=== PATIENT | female | born 1955 | race Caucasian/White ===

== ENCOUNTER 2017-12-17 16:58 | Inpatient (IN) | payer OTHER ==
[2017-12-17] MEDS ORDERED: SODIUM CHLORIDE 0.9% 500 ML IV ONE ×2 (17:13→21:06)
[2017-12-17] MEDS ORDERED: PANTOPRAZOLE 40 MG/10 ML VIAL IVP STA (17:13)
--- NOTE | 2017-12-17 17:33 | ED ---
General Adult HPI - General Chief complaint: GI Bleed Stated complaint: Vomiting Blood Time Seen by Provider: 12/17/17 17:13 Source: patient, EMS, RN notes reviewed Mode of arrival: EMS Limitations: no limitations - History of Present Illness Initial comments: 62-year-old female presenting with hematemesis. Patient states she has had 2 episodes of bright red vomit just prior to arrival. Denies any abdominal pain. She has had some nausea over the past 24 hours. Patient states she's been eating nothing but chocolate over the past several weeks. She has complained of some dark stools which she attributed to the chocolate she was eating. She has also been taking Motrin for chronic back pain. No history of alcohol abuse. She is a current smoker. No history of stomach ulcers or GI bleed. No bright red blood per rectum. She also states the reason she has been eating soft foods because she has had difficulty swallowing. - Related Data Home Medications Medication Instructions Recorded Confirmed Ibuprofen [Advil] 400 - 600 mg PO Q8HR PRN 12/17/17 12/17/17 Allergies Allergy/AdvReac Type Severity Reaction Status Date / Time Penicillins Allergy Swelling Verified 12/17/17 17:01 Review of Systems ROS Statement: Those systems with pertinent positive or pertinent negative responses have been documented in the HPI. ROS Other: All systems not noted in ROS Statement are negative. Past Medical History Past Medical History: No Reported History History of Any Multi-Drug Resistant Organisms: None Reported Past Surgical History: No Surgical Hx Reported Past Psychological History: No Psychological Hx Reported Smoking Status: Current every day smoker Past Alcohol Use History: None Reported Past Drug Use History: None Reported General Exam Limitations: no limitations General appearance: alert, in no apparent distress Head exam: Present: atraumatic, normocephalic Eye exam: Present: normal appearance, PERRL, EOMI Neck exam: Present: normal inspection. Absent: tenderness, meningismus Respiratory exam: Present: decreased breath sounds (Diminished breath sounds on the right). Absent: respiratory distress, wheezes Cardiovascular Exam: Present: normal rhythm, tachycardia, JVD GI/Abdominal exam: Present: soft. Absent: distended, tenderness, guarding Rectal exam: Present: normal inspection, black stool Extremities exam: Present: normal inspection. Absent: full ROM, tenderness Back exam: Present: paraspinal tenderness (Thoracic paraspinal) Neurological exam: Present: alert, oriented X3, CN II-XII intact. Absent: motor sensory deficit Psychiatric exam: Present: normal affect, normal mood Skin exam: Present: warm, dry, intact, pallor. Absent: cyanosis, diaphoretic Course Vital Signs 12/17/17 12/17/17 12/17/17 17:01 18:47 20:23 Temperature 97.4 F L Pulse Rate 126 H 100 105 H Respiratory 18 16 17 Rate Blood Pressure 102/67 90/58 96/61 O2 Sat by Pulse 98 99 95 Oximetry 12/17/17 21:23 Temperature Pulse Rate 98 Respiratory 18 Rate Blood Pressure 88/63 O2 Sat by Pulse 95 Oximetry EKG Findings - EKG Comments: EKG Findings:: EKG: Sinus tachycardia, right axis deviation, pulmonary disease pattern, possible right ventricular hypertrophy, ventricular rate 129, QRS duration 1:30, QRS duration 68, QTC 430 Medical Decision Making - Medical Decision Making 62-year-old female presenting with concern for GI bleed. History from patient' s and EMS indicates there was a decent amount of bright red blood in her vomit. Patient has not seen a doctor in many years. She states she has had symptoms of worsening dysphagia over the past weeks to months. Laboratory studies are obtained, white blood cell count is 25.9, hemoglobin is 11.0. Sodium 135, CMP is otherwise unremarkable. Heme occult is positive. Chest x-ray shows large right-sided pleural effusion and concern for right. Tracheal mass. CT the abdomen is performed which shows large pleural effusion as well as an enlarged stomach. CT of the chest is obtained and large right- sided mass with involvement of the mediastinum and SVC occlusion. Hematemesis likely secondary to venous congestion versus erosion by mass. Case discussed with Dr. Padilla who recommends IV steroids. Patient will be admitted with pulmonary and oncology on consult. - Lab Data Result diagrams: 12/17/17 17:15 12/17/17 17:15 Lab Results 12/17/17 12/17/17 12/17/17 Range/Units 17:15 17:15 17:15 WBC 25.9 H* (3.8-10.6) k/uL RBC 3.77 L (3.80-5.40) m/uL Hgb 11.0 L (11.4-16.0) gm/dL Hct 33.9 L (34.0-46.0) % MCV 89.9 (80.0-100.0) fL MCH 29.2 (25.0-35.0) pg MCHC 32.5 (31.0-37.0) g/dL RDW 14.0 (11.5-15.5) % Plt Count 561 H (150-450) k/uL Neutrophils % (Manual) 74 % Band Neutrophils % 2 % Lymphocytes % (Manual) 13 % Monocytes % (Manual) 10 % Metamyelocytes % 1 % Neutrophils # (Manual) 19.60 H (1.3-7.7) k/uL Lymphocytes # (Manual) 3.37 (1.0-4.8) k/uL Monocytes # (Manual) 2.59 H (0-1.0) k/uL Metamyelocytes # (Man) 0.26 H (0) k/uL Nucleated RBCs 0 (0-0) /100 WBC Polychromasia Present APTT (22.0-30.0) sec Sodium 135 L (137-145) mmol/L Potassium 5.1 (3.5-5.1) mmol/L Chloride 101 (98-107) mmol/L Carbon Dioxide 23 (22-30) mmol/L Anion Gap 11 mmol/L BUN 15 (7-17) mg/dL Creatinine 0.60 (0.52-1.04) mg/dL Est GFR (CKD-EPI)AfAm >90 (>60 ml/min/1.73 sqM) Est GFR (CKD-EPI)NonAf >90 (>60 ml/min/1.73 sqM) Glucose 133 H (74-99) mg/dL Calcium 8.3 L (8.4-10.2) mg/dL Magnesium 2.2 (1.6-2.3) mg/dL Total Bilirubin 0.8 (0.2-1.3) mg/dL AST 32 (14-36) U/L ALT 19 (9-52) U/L Alkaline Phosphatase 101 (38-126) U/L Total Creatine Kinase 26 L (30-135) U/L CK-MB (CK-2) 0.3 (0.0-2.4) ng/mL CK-MB (CK-2) Rel Index 1.2 Troponin I <0.012 (0.000-0.034) ng/mL Total Protein 5.8 L (6.3-8.2) g/dL Albumin 3.0 L (3.5-5.0) g/dL Lipase 53 (23-300) U/L Stool Occult Blood (Negative) Blood Type Blood Type Confirm Blood Type Recheck Antibody Screen Spec Expiration Date 12/17/17 12/17/17 12/17/17 Range/Units 17:15 17:15 17:30 WBC (3.8-10.6) k/uL RBC (3.80-5.40) m/uL Hgb (11.4-16.0) gm/dL Hct (34.0-46.0) % MCV (80.0-100.0) fL MCH (25.0-35.0) pg MCHC (31.0-37.0) g/dL RDW (11.5-15.5) % Plt Count (150-450) k/uL Neutrophils % (Manual) % Band Neutrophils % % Lymphocytes % (Manual) % Monocytes % (Manual) % Metamyelocytes % % Neutrophils # (Manual) (1.3-7.7) k/uL Lymphocytes # (Manual) (1.0-4.8) k/uL Monocytes # (Manual) (0-1.0) k/uL Metamyelocytes # (Man) (0) k/uL Nucleated RBCs (0-0) /100 WBC Polychromasia APTT 21.0 L (22.0-30.0) sec Sodium (137-145) mmol/L Potassium (3.5-5.1) mmol/L Chloride (98-107) mmol/L Carbon Dioxide (22-30) mmol/L Anion Gap mmol/L BUN (7-17) mg/dL Creatinine (0.52-1.04) mg/dL Est GFR (CKD-EPI)AfAm (>60 ml/min/1.73 sqM) Est GFR (CKD-EPI)NonAf (>60 ml/min/1.73 sqM) Glucose (74-99) mg/dL Calcium (8.4-10.2) mg/dL Magnesium (1.6-2.3) mg/dL Total Bilirubin (0.2-1.3) mg/dL AST (14-36) U/L ALT (9-52) U/L Alkaline Phosphatase (38-126) U/L Total Creatine Kinase (30-135) U/L CK-MB (CK-2) (0.0-2.4) ng/mL CK-MB (CK-2) Rel Index Troponin I (0.000-0.034) ng/mL Total Protein (6.3-8.2) g/dL Albumin (3.5-5.0) g/dL Lipase (23-300) U/L Stool Occult Blood Positive H (Negative) Blood Type B Positive Blood Type Confirm Blood Type Recheck CABO Indicated Antibody Screen NEGATIVE Spec Expiration Date 12/20/2017 - 231412/17/17 Range/Units 18:20 WBC (3.8-10.6) k/uL RBC (3.80-5.40) m/uL Hgb (11.4-16.0) gm/dL Hct (34.0-46.0) % MCV (80.0-100.0) fL MCH (25.0-35.0) pg MCHC (31.0-37.0) g/dL RDW (11.5-15.5) % Plt Count (150-450) k/uL Neutrophils % (Manual) % Band Neutrophils % % Lymphocytes % (Manual) % Monocytes % (Manual) % Metamyelocytes % % Neutrophils # (Manual) (1.3-7.7) k/uL Lymphocytes # (Manual) (1.0-4.8) k/uL Monocytes # (Manual) (0-1.0) k/uL Metamyelocytes # (Man) (0) k/uL Nucleated RBCs (0-0) /100 WBC Polychromasia APTT (22.0-30.0) sec Sodium (137-145) mmol/L Potassium (3.5-5.1) mmol/L Chloride (98-107) mmol/L Carbon Dioxide (22-30) mmol/L Anion Gap mmol/L BUN (7-17) mg/dL Creatinine (0.52-1.04) mg/dL Est GFR (CKD-EPI)AfAm (>60 ml/min/1.73 sqM) Est GFR (CKD-EPI)NonAf (>60 ml/min/1.73 sqM) Glucose (74-99) mg/dL Calcium (8.4-10.2) mg/dL Magnesium (1.6-2.3) mg/dL Total Bilirubin (0.2-1.3) mg/dL AST (14-36) U/L ALT (9-52) U/L Alkaline Phosphatase (38-126) U/L Total Creatine Kinase (30-135) U/L CK-MB (CK-2) (0.0-2.4) ng/mL CK-MB (CK-2) Rel Index Troponin I (0.000-0.034) ng/mL Total Protein (6.3-8.2) g/dL Albumin (3.5-5.0) g/dL Lipase (23-300) U/L Stool Occult Blood (Negative) Blood Type Blood Type Confirm B Positive Blood Type Recheck Antibody Screen Spec Expiration Date Critical Care Time Critical Care Time: Yes Total Critical Care Time: 35 Disposition Clinical Impression: SVC syndrome, Lung mass Disposition: ADMITTED IP TO THIS [facility] Condition: Serious Is patient prescribed a controlled substance at d/c from ED?: No Referrals: Mary Bridges MD [Primary Care Provider] - 1-2 days Decision to Admit Reason: Admit from EC Decision Date: 12/17/17 Decision Time: 21:13
--- NOTE | 2017-12-17 17:38 | XR ---
EXAMINATION TYPE: XR chest 1V portable DATE OF EXAM: 12/17/2017 COMPARISON: NONE HISTORY: Chest pain TECHNIQUE: Single frontal view of the chest is obtained. FINDINGS: There is opacification of the 50% right lower hemithorax. There is consolidation and pleur al thickening at the right lung apex. Left lung is clear. There is no gross heart failure. There is s ome widening of the mediastinum. IMPRESSION: Consolidation and pleural fluid on the right side. Follow-up is recommended. The possibi lity of mediastinal right paratracheal mass should be considered.
[2017-12-17 17:41] LABS: ALT 19 U/L (9-52); AST 32 U/L (14-36); Alkaline Phosphatase 101 U/L (38-126); Anion Gap 11 mmol/L; Blood Urea Nitrogen 15 mg/dL (7-17); Calcium 8.3 mg/dL (8.4-10.2); Carbon Dioxide 23 mmol/L (22-30); Chloride 101 mmol/L (98-107); Creatine Kinase 26 U/L (30-135); Glucose 133 mg/dL (74-99); Lipase 53 U/L (23-300); Magnesium 2.2 mg/dL (1.6-2.3); Sodium 135 mmol/L (137-145); Total Bilirubin 0.8 mg/dL (0.2-1.3); Total Protein 5.8 g/dL (6.3-8.2)
[2017-12-17 17:42] LABS: HCT 33.9 % (34.0-46.0); MCH 29.2 pg (25.0-35.0); MCHC 32.5 g/dL (31.0-37.0); MCV 89.9 fL (80.0-100.0); Mean Platelet Volume 6.7; Platelet Count 561 k/uL (150-450); RBC 3.77 m/uL (3.80-5.40)
[2017-12-17 17:43] LABS: Potassium 5.1 mmol/L (3.5-5.1)
[2017-12-17 17:45] LABS: WBC 25.9 k/uL (3.8-10.6)
[2017-12-17 17:52] LABS: Creatine Kinase MB 0.3 ng/mL (0.0-2.4); Troponin I <0.012 ng/mL (0.000-0.034)
[2017-12-17] MEDS ORDERED: MORPHINE SULFATE 4 MG/ML SYRINGE IVP STA ×2 (18:18→20:39)
[2017-12-17] MEDS ORDERED: RX INFO: IV CONTRAST WAS GIVEN 1 EACH MISC MISCELLANE PRN ×2 (18:46→20:03)
[2017-12-17 18:53] LABS: Band Neutrophils % 2 %; Lymphocytes # (M) 3.37 k/uL (1.0-4.8); Metamyelocytes # (M) 0.26 k/uL (0); Metamyelocytes % 1 %; Monocytes # (M) 2.59 k/uL (0-1.0); Neutrophils % (M) 74 %; Nucleated Red Blood Cells 0 /100 WBC (0-0); Polychromasia Present; Total Cells Counted 100
--- NOTE | 2017-12-17 19:37 | CT ---
EXAMINATION TYPE: CT abdomen pelvis w con DATE OF EXAM: 12/17/2017 COMPARISON: NONE HISTORY: Generalized pain with blood in stool CT DLP: 1250 mGycm Automated exposure control for dose reduction was used. TECHNIQUE: Helical acquisition of images was performed from the lung bases through the pelvis. CONTRAST: Performed without Oral Contrast and with IV Contrast, patient injected with 100 mL of Isovue 300. FINDINGS: There is a moderate-sized right pleural effusion. There is atelectasis at the right lung base. Bile d ucts are not dilated. There is a 1 cm cyst in the right lobe of the liver. Gallbladder appears normal . There is no evidence of pancreatic mass. Spleen appears normal. The stomach is large. There is no adrenal mass. Kidneys show satisfactory contrast opacification. There is no hydronephrosi s. There is no retroperitoneal adenopathy. Abdominal aorta is atheromatous. There is no ascites. Blad raine distends smoothly. I see no intestinal wall thickening. I see no bony destructive process. There is no evidence of a pelvic mass. There are probably a few sigmoid diverticula. There is no evidence o f diverticulitis.: There are prominent anterior abdomen subcutaneous veins. These appear to be draining into the femoral veins. IMPRESSION: LARGE RIGHT PLEURAL EFFUSION AND RIGHT LOWER LOBE ATELECTASIS. 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 NO FREE AIR. MILD SIGMOID DIVERTICULOSIS. Prominent anterior superficial veins could relate to superior vena cava syndrome and development of c ollateral venous flow. Chest CT scan would be helpful for further evaluation if clinically indicated.
[2017-12-17] MEDS ORDERED: LEVOFLOXACIN 500MG-D5W PMX 500 MG in DEXTROSE/WATER 1 100ML.BAG IVPB STA (21:04)
[2017-12-17] MEDS ORDERED: VANCOMYCIN IV PER PHARMACY 1 EACH MISC MISCELLANE PRN (21:04)
--- NOTE | 2017-12-17 21:29 | CT ---
EXAMINATION TYPE: CT chest w con DATE OF EXAM: 12/17/2017 COMPARISON: NONE HISTORY: No chest complaints at time of scan possible superior vena cava syndrome. CT DLP: 502 mGycm Automated exposure control for dose reduction was used. CONTRAST: CT scan of the chest is performed with IV Contrast, patient injected with 60 mL of Isovue 300. FINDINGS: There is a large right pleural effusion. There is extensive masslike density at the right lung apex e xtending into the thoracic inlet and base of the neck anteriorly. This mass measures approximately 11 x 9 cm. There is no venous flow seen in the superior vena cava. The trachea is deviated slightly to the left side. There is mass extension in the right paratracheal region to the right pulmonary hilum. There is significant consolidation and atelectasis in the right lung. There is pulmonary emphysema s een on the left side. The left lung is clear of consolidation. There is minimal pleural reaction at t he left posterior lung base. There are dilated cutaneous veins over the anterior chest consistent wit h collateral flow. There is 30% anterior wedging of T3 vertebra with some mottled destructive changes . There is similar mild 15% compression and destructive changes in the T2 vertebral body. There is so me mottled sclerosis in the anterior right first rib. IMPRESSION: Large right upper lobe tumor mass with extension through the thoracic inlet. Changes in the right first rib and the T2 and T3 vertebral bodies suspicious for tumor involvement. 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 Extensive mas s involvement of the superior mediastinum and paratracheal mediastinum. Large right pleural effusion.
[2017-12-17] MEDS ORDERED: VANCOMYCIN 750 MG in SODIUM CHLORIDE 0.9% 250 ML IVPB ONE (21:30)
[2017-12-17] MEDS ORDERED: NALOXONE 0.4 MG/ML 1 ML VIAL IV PRN (22:01)
[2017-12-17] MEDS ORDERED: DEXAMETHASONE SOD PHOSPHATE 10 MG/ML 1 ML VIAL IV STA (22:01)
[2017-12-17] MEDS ORDERED: ACETAMINOPHEN TAB 325 MG TAB PO PRN (22:01)
[2017-12-17] MEDS ORDERED: ONDANSETRON 4 MG/2 ML VIAL IVP PRN (22:01)
[2017-12-17] MEDS: SODIUM CHLORIDE 0.9% 1,000 ML IV SCH (22:22)
[2017-12-17] MEDS: DEXAMETHASONE SOD PHOSPHATE 4 MG/ML 1 ML VIAL IV SCH (23:21)
[2017-12-17] MEDS: MORPHINE SULFATE 4 MG/ML SYRINGE IV PRN (23:24)
[2017-12-18] MEDS ORDERED: VANCOMYCIN 750 MG in SODIUM CHLORIDE 0.9% 250 ML IVPB SCH (06:00)
[2017-12-18] MEDS: DEXAMETHASONE SOD PHOSPHATE 4 MG/ML 1 ML VIAL IV SCH ×2 (06:29→12:42)
[2017-12-18 08:35] LABS: Anion Gap 10 mmol/L; Blood Urea Nitrogen 17 mg/dL (7-17); Calcium 8.4 mg/dL (8.4-10.2); Carbon Dioxide 24 mmol/L (22-30); Chloride 103 mmol/L (98-107); Glucose 113 mg/dL (74-99); Potassium 4.9 mmol/L (3.5-5.1); Sodium 137 mmol/L (137-145)
[2017-12-18] MEDS ORDERED: PANTOPRAZOLE 40 MG/10 ML VIAL IVP SCH (09:00)
[2017-12-18 09:09] VITALS: RESP 16; TEMP 98.6
--- NOTE | 2017-12-18 11:20 | P.CNPUL ---
History of Present Illness Consult date: 12/18/17 Reason for consult: abnormal CXR/CT, other Chief complaint: Significant hemoptysis History of present illness: Consult dated 12/18/2017 This is a 62-year-old smoker presenting with hemoptysis. She is apparently coughing up bright red blood. She is a very abnormal chest x-ray and abnormal computed tomography scan suggesting extensive tumor in the right chest. She also may have involvement or encasement of the superior vena cava with superior vena caval syndrome as well as disease involving the first rib and T2-T3 vertebral bodies. She has extensive disease. She's got significant bright red blood at the bedside. I suspect that she is coughing up this blood has significant hemoptysis. We'll see if we can transfer her to a facility that would be able to deal with massive hemoptysis. We do not have the capability of bronchial arteriography here. She is a heavy smoker. Apparently does not have any significant past medical history. Only takes ibuprofen. No surgical history. Is a current every day smoker. No alcohol or illicit drug use. Review of Systems A 12 point review of system is positive for significant bright red hemoptysis. Past Medical History Past Medical History: No Reported History Additional Past Medical History / Comment(s): bleeding ulcers as a kid History of Any Multi-Drug Resistant Organisms: None Reported Past Surgical History: No Surgical Hx Reported Past Anesthesia/Blood Transfusion Reactions: No Reported Reaction Past Psychological History: No Psychological Hx Reported Smoking Status: Current every day smoker Past Alcohol Use History: None Reported Past Drug Use History: None Reported Medications and Allergies Home Medications Medication Instructions Recorded Confirmed Type Ibuprofen [Advil] 400 - 600 mg PO Q8HR PRN 12/17/17 12/17/17 History Allergies Allergy/AdvReac Type Severity Reaction Status Date / Time Penicillins Allergy Swelling Verified 12/17/17 17:01 Physical Exam Osteopathic Statement: *. No significant issues noted on an osteopathic structural exam other than those noted in the History and Physical/Consult. Vitals: Vital Signs Temp Pulse Pulse Resp BP BP Pulse Ox 12/18/17 08:00 98.6 F 101 H 16 90/55 92 L 12/18/17 04:00 97.0 F L 87 18 95/60 97 12/18/17 00:00 97.6 F 99 18 98/55 100 12/17/17 22:20 96 19 92/55 96 12/17/17 21:23 98 18 88/63 95 12/17/17 20:23 105 H 17 96/61 95 12/17/17 18:47 100 16 90/58 99 12/17/17 17:01 97.4 F L 126 H 18 102/67 98 Intake and Output 12/17/17 12/18/17 12/18/17 22:59 06:59 14:59 Intake Total 665 200 Balance 665 200 Intake: IV 665 0.9 665 Oral 200 Other: Voiding Method Toilet Weight 49.895 kg 51.1 kg No acute distress, oriented 3. No respiratory distress. HEENT examination is grossly unremarkable. Mucous membranes are moist. No oral lesions. Neck supple. Full range of motion. No adenopathy thyromegaly or neck vein distention. Cardiovascular examination reveals regular rhythm rate. S1-S2 normal. No S3 or S4. No discernible murmur noted. Lungs reveal diminished breath sounds. A few scattered rhonchi are noted. No wheezes are noted. No crackles. Abdomen soft bowel sounds are heard. No masses or tenderness. Extremities are intact. No cyanosis clubbing or edema. Skin is without rash or lesion. Neurologic examination is brief but nonfocal. Results - Laboratory Findings CBC and BMP: 12/17/17 17:15 12/18/17 08:03 Abnormal lab findings: Abnormal Labs 12/17/17 12/17/17 12/17/17 17:15 17:15 17:15 WBC 25.9 H* RBC 3.77 L Hgb 11.0 L Hct 33.9 L Plt Count 561 H Neutrophils # (Manual) 19.60 H Monocytes # (Manual) 2.59 H Metamyelocytes # (Man) 0.26 H APTT Sodium 135 L Glucose 133 H Calcium 8.3 L Total Creatine Kinase 26 L Total Protein 5.8 L Albumin 3.0 L Stool Occult Blood 12/17/17 12/17/17 12/18/17 17:15 17:30 08:03 WBC RBC Hgb Hct Plt Count Neutrophils # (Manual) Monocytes # (Manual) Metamyelocytes # (Man) APTT 21.0 L Sodium Glucose 113 H Calcium Total Creatine Kinase Total Protein Albumin Stool Occult Blood Positive H - Diagnostic Findings Chest x-ray: image reviewed CT scan - chest: image reviewed (Chest x-ray, CAT scan, labs, and medications are all reviewed.) Assessment and Plan Assessment: Assessment Likely lung cancer with significant tumor involvement of the right chest right paratracheal area and mediastinum with possible superior vena caval syndrome and significant hemoptysis. Probable COPD Ongoing tobacco use and nicotine addiction Plan: Plan dated 12/18/2017 I recommended transfer to [facility]. This patient has significant tumor involvement of the right chest with superior vena caval syndrome. She probably will need something like bronchial arteriography which we cannot provide her here., Let the nurse notes and notify the primary service. Transferred team to be involved. She can go by ground ambulance to [facility]. Additional recommendations and suggestions are forthcoming. Her prognosis is extremely poor given the extent of her tumor mass involving the right chest. Time with Patient: Greater than 30
[2017-12-18 11:37] VITALS: BMI 18.7
--- NOTE | 2017-12-18 11:53 | P.CONS ---
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 Concerning for a malignant picture, also identified is potential disease involving the first rib and T2, T3 vertebral bodies. She has a residential history of heavy tobacco abuse and poor preventative care (does not go to doctor per family). There is limited personal history because of this. She denies any alcohol or ilicit drug use. Denies any surgical history or prescribed medication use. She does take OTC ibuprofen as needed for discomforts. She is coughing up bright red blood. Dr. Padilla was consulted regarding this likely picture of extensive malignancy, which appears to be complicated with a superior vena cava syndrome. She was initiated of steroids for the SVC with PPI. [facility] She states its not necessarily a cough but rather the blood just comes up and out. This has diminished since admission, she is feeling a little better since admission. Review of Systems A 14 point review of systems assessed and completed and all negative except HPI. Past Medical History Past Medical History: No Reported History Additional Past Medical History / Comment(s): bleeding ulcers as a kid History of Any Multi-Drug Resistant Organisms: None Reported Past Surgical History: No Surgical Hx Reported Past Anesthesia/Blood Transfusion Reactions: No Reported Reaction Past Psychological History: No Psychological Hx Reported Smoking Status: Current every day smoker Past Alcohol Use History: None Reported Past Drug Use History: None Reported Medications and Allergies Home Medications Medication Instructions Recorded Confirmed Type Ibuprofen [Advil] 400 - 600 mg PO Q8HR PRN 12/17/17 12/17/17 History Allergies Allergy/AdvReac Type Severity Reaction Status Date / Time Penicillins Allergy Swelling Verified 12/17/17 17:01 Physical Exam Vitals: Vital Signs Temp Pulse Pulse Resp BP BP Pulse Ox 12/18/17 08:00 98.6 F 101 H 16 90/55 92 L 12/18/17 04:00 97.0 F L 87 18 95/60 97 12/18/17 00:00 97.6 F 99 18 98/55 100 12/17/17 22:20 96 19 92/55 96 12/17/17 21:23 98 18 88/63 95 12/17/17 20:23 105 H 17 96/61 95 12/17/17 18:47 100 16 90/58 99 12/17/17 17:01 97.4 F L 126 H 18 102/67 98 Intake and Output 12/17/17 12/18/17 12/18/17 22:59 06:59 14:59 Intake Total 665 200 Balance 665 200 Intake: IV 665 0.9 665 Oral 200 Other: Voiding Method Toilet Weight 49.895 kg 51.1 kg - Constitutional General appearance: average body habitus, no acute distress - EENT Eyes: EOMI, poor dentition, normal appearance ENT: NA/AT, other - Neck Neck: lymphadenopathy, normal ROM - Respiratory Respiratory: bilateral: diminished (Throughout) - Cardiovascular Heart rate: 106 Rhythm: regular - Gastrointestinal General gastrointestinal: soft, tenderness - Integumentary Integumentary: pale - Neurologic Neurologic: CNII-XII intact - Musculoskeletal Musculoskeletal: generalized weakness, strength equal bilaterally - Psychiatric Psychiatric: A&O x's 3, appropriate affect, intact judgment & insight Results CBC & Chem 7: 12/18/17 08:03 12/18/17 08:03 Labs: Abnormal Lab Results - Last 24 Hours (Table) 12/17/17 12/17/17 12/17/17 Range/Units 17:15 17:15 17:15 WBC 25.9 H* (3.8-10.6) k/uL RBC 3.77 L (3.80-5.40) m/uL Hgb 11.0 L (11.4-16.0) gm/dL Hct 33.9 L (34.0-46.0) % Plt Count 561 H (150-450) k/uL Neutrophils # (Manual) 19.60 H (1.3-7.7) k/uL Monocytes # (Manual) 2.59 H (0-1.0) k/uL Metamyelocytes # (Man) 0.26 H (0) k/uL APTT (22.0-30.0) sec Sodium 135 L (137-145) mmol/L Glucose 133 H (74-99) mg/dL Calcium 8.3 L (8.4-10.2) mg/dL Total Creatine Kinase 26 L (30-135) U/L Total Protein 5.8 L (6.3-8.2) g/dL Albumin 3.0 L (3.5-5.0) g/dL Stool Occult Blood (Negative) 12/17/17 12/17/17 12/18/17 Range/Units 17:15 17:30 08:03 WBC (3.8-10.6) k/uL RBC (3.80-5.40) m/uL Hgb (11.4-16.0) gm/dL Hct (34.0-46.0) % Plt Count (150-450) k/uL Neutrophils # (Manual) (1.3-7.7) k/uL Monocytes # (Manual) (0-1.0) k/uL Metamyelocytes # (Man) (0) k/uL APTT 21.0 L (22.0-30.0) sec Sodium (137-145) mmol/L Glucose 113 H (74-99) mg/dL Calcium (8.4-10.2) mg/dL Total Creatine Kinase (30-135) U/L Total Protein (6.3-8.2) g/dL Albumin (3.5-5.0) g/dL Stool Occult Blood Positive H (Negative) Chest x-ray: report reviewed CT scan - abdomen: report reviewed CT scan - chest: report reviewed CT scan - pelvis: report reviewed Assessment and Plan Plan: Assessment and Recommendations: 1. New Mass Density Right Lung: - Extensive Masslike Density in Right Lung Parker Extending to the thoracic inlet and base of the neck anteriorly - Mass on CT is noted to be 11X9cm and appears to be causing compression showing no venous flow through the superior vena cava. - CT reveals some trachea deviation and mass extension right paratracheal and right pulmonary hilum - Appears to be associated compression destruction T2 and T3 - Large Right Pleural Effusion - Picture is very concerning for an extensive stage lung cancer primary - Pulmonary is following, Tissue Biopsy is recommended - CT abd/pelvis for full staging reviewed (No identified disease below diaphragm) - MRI of the Brain should be considered eventually for full staging (After initial Oncological Emergency of SVC is stabilized) 2. Hemoptysis/Hematemesis - Secondary to number one - Check CBC today and Coags 3. Superior Vena Cava Syndrome - - IV Steroids Dexamethasone 4mg q6 hours with PPI Initiated on arrival - Radiation Oncology Consult would be beneficial whether patient remains here or transferred. 4. Tobacco Abuse - terminal clerk History of Dependence 5. Anemia Secondary to Acute Blood Loss - Monitor CBC - Iron Studies - Supportive Transfusions and/or parental iron if needed 6. Leukocytosis - likely Reactive 7. Thrombocytosis - Reactive 8. Non Aherent to Regular Medical Preventative Care therefore no personal documentated medical history. Physician Attestation: I have completed the full history and physical of this patient and agree with above dictation by Tamika Evans NP. Dictated as a scribe.
[2017-12-18 12:03] LABS: Basophils % (A) 0 %; Eosinophils % (A) 0 %; HCT 29.3 % (34.0-46.0); Hypochromasia Slight; Lymphocytes # (A) 3.1 k/uL (1.0-4.8); Lymphocytes % (A) 15 %; MCH 28.9 pg (25.0-35.0); MCHC 31.1 g/dL (31.0-37.0); MCV 92.9 fL (80.0-100.0); Monocytes # (A) 0.7 k/uL (0-1.0); Monocytes % (A) 3 %; Neutrophils % (A) 81 %; Platelet Count 470 k/uL (150-450); RBC 3.15 m/uL (3.80-5.40); RDW 13.7 % (11.5-15.5)
[2017-12-18 12:14] LABS: HGB 9.1 gm/dL (11.4-16.0)
[2017-12-18 12:32] LABS: Reticulocyte % 2.6 % (0.5-2.0)
[2017-12-18 12:41] VITALS: BP 97/61; PULSE 106
[2017-12-18] MEDS: MORPHINE SULFATE 4 MG/ML SYRINGE IV PRN (12:42)
--- NOTE | 2017-12-18 12:52 | P.HPIM ---
History of Present Illness H&P Date: 12/18/17 Chief Complaint: Hemoptysis This is a combined history and physical and discharge summary This 62-year-old woman with a past medical history of no significant medical issues being followed by Dr. Bridges in the outpatient setting was admitted with the acute hemodialysis. A CAT scan done in the ER showed new mass density right lung with the mediastinal involvement, superior vena caval syndrome, involvement of ribs and vertebral bodies. Patient also has a large right pleural effusion. Hemoglobin dropped from 11-9.[address] Pedersen was consulted from pulmonary. Because of the history of significant hemoptysis and multiple other findings Dr. Pedersen recommended the patient to be transferred to tertiary care center for further evaluation and monitoring and treatment. I discussed the case at length with the [facility] tech ed teacher. Patient be transferred in a stable condition with a guarded prognosis. Review of Systems REVIEW OF SYSTEMS: ENT: No diminished vision or hearing. CARDIOVASCULAR: Mentioned earlier. RESPIRATORY: As mentioned earlier. GI: No nauscea, vomiting or diarrhea. : No dysuria or retention. NERVOUS SYSTEM: No numbness or weakness. ALLERGY/IMMUNOLOGY: No asthma or hay fever. MUSCULOSKELETAL: As mentioned earlier. HEMATOLOGY/ONCOLOGY: As mentioned in H&P. ENDOCRINE: No history of diabetes or hypothyroidism. CONSTITUTIONAL: As mentioned earlier. DERMATOLOGY: Negative. PSYCHIATRY: Negative. RHEUMATOLOGY: Negative. Past Medical History Past Medical History: No Reported History Additional Past Medical History / Comment(s): bleeding ulcers as a kid History of Any Multi-Drug Resistant Organisms: None Reported Past Surgical History: No Surgical Hx Reported Past Anesthesia/Blood Transfusion Reactions: No Reported Reaction Past Psychological History: No Psychological Hx Reported Smoking Status: Current every day smoker Past Alcohol Use History: None Reported Past Drug Use History: None Reported Medications and Allergies Home Medications Medication Instructions Recorded Confirmed Type Ibuprofen [Advil] 400 - 600 mg PO Q8HR PRN 12/17/17 12/17/17 History Allergies Allergy/AdvReac Type Severity Reaction Status Date / Time Penicillins Allergy Swelling Verified 12/17/17 17:01 Physical Exam Vitals: Vital Signs Temp Pulse Pulse Resp BP BP Pulse Ox 12/18/17 12:00 106 H 16 97/61 90 L 12/18/17 08:00 98.6 F 101 H 16 90/55 92 L 12/18/17 04:00 97.0 F L 87 18 95/60 97 12/18/17 00:00 97.6 F 99 18 98/55 100 12/17/17 22:20 96 19 92/55 96 12/17/17 21:23 98 18 88/63 95 12/17/17 20:23 105 H 17 96/61 95 12/17/17 18:47 100 16 90/58 99 12/17/17 17:01 97.4 F L 126 H 18 102/67 98 Intake and Output 12/17/17 12/18/17 12/18/17 22:59 06:59 14:59 Intake Total 665 200 Balance 665 200 Intake: IV 665 0.9 665 Oral 200 Other: Voiding Method Toilet Weight 49.895 kg 51.1 kg 51.1 kg On exam, alert and oriented x3. HEENT: Conjunctivae normal. eyes normal. NECK: No JVD. No thyroid enlargement. Fullness in the neck. CARDIOVASCULAR: S1, S2 muffled. No murmur RESPIRATION: Breath sounds diminished in the bases. Few rhonchi heard. No bronchial breathing. ABDOMEN: Soft, nontender . No guarding. no masses palpable. No ascites, No hepatosplenomegaly.Bowel sounds heard. LEGS: No edema. no swelling NERVOUS SYSTEM: Cranial N 2-12 grossly normal. Moves all 4 limbs. No focal deficits. No sensory deficit. No signs of cerebellar dysfucntion. Skin: no ulcer no rash Joints: No active swelling. No inflammation. Lymphatic system. No LN neck axilla or groin. Results CBC & Chem 7: 12/18/17 08:03 12/18/17 08:03 Labs: Abnormal Lab Results - Last 24 Hours (Table) 12/17/17 12/17/17 12/17/17 Range/Units 17:15 17:15 17:15 WBC 25.9 H* (3.8-10.6) k/uL RBC 3.77 L (3.80-5.40) m/uL Hgb 11.0 L (11.4-16.0) gm/dL Hct 33.9 L (34.0-46.0) % Plt Count 561 H (150-450) k/uL Neutrophils # (1.3-7.7) k/uL Neutrophils # (Manual) 19.60 H (1.3-7.7) k/uL Monocytes # (Manual) 2.59 H (0-1.0) k/uL Metamyelocytes # (Man) 0.26 H (0) k/uL Retic Count (0.5-2.0) % APTT (22.0-30.0) sec Sodium 135 L (137-145) mmol/L Glucose 133 H (74-99) mg/dL Calcium 8.3 L (8.4-10.2) mg/dL Total Creatine Kinase 26 L (30-135) U/L Total Protein 5.8 L (6.3-8.2) g/dL Albumin 3.0 L (3.5-5.0) g/dL Stool Occult Blood (Negative) 12/17/17 12/17/17 12/18/17 Range/Units 17:15 17:30 08:03 WBC (3.8-10.6) k/uL RBC (3.80-5.40) m/uL Hgb (11.4-16.0) gm/dL Hct (34.0-46.0) % Plt Count (150-450) k/uL Neutrophils # (1.3-7.7) k/uL Neutrophils # (Manual) (1.3-7.7) k/uL Monocytes # (Manual) (0-1.0) k/uL Metamyelocytes # (Man) (0) k/uL Retic Count (0.5-2.0) % APTT 21.0 L (22.0-30.0) sec Sodium (137-145) mmol/L Glucose 113 H (74-99) mg/dL Calcium (8.4-10.2) mg/dL Total Creatine Kinase (30-135) U/L Total Protein (6.3-8.2) g/dL Albumin (3.5-5.0) g/dL Stool Occult Blood Positive H (Negative) 12/18/17 12/18/17 Range/Units 08:03 08:03 WBC 21.0 H (3.8-10.6) k/uL RBC 3.15 L (3.80-5.40) m/uL Hgb 9.1 L D (11.4-16.0) gm/dL Hct 29.3 L (34.0-46.0) % Plt Count 470 H (150-450) k/uL Neutrophils # 17.0 H (1.3-7.7) k/uL Neutrophils # (Manual) (1.3-7.7) k/uL Monocytes # (Manual) (0-1.0) k/uL Metamyelocytes # (Man) (0) k/uL Retic Count 2.6 H (0.5-2.0) % APTT (22.0-30.0) sec Sodium (137-145) mmol/L Glucose (74-99) mg/dL Calcium (8.4-10.2) mg/dL Total Creatine Kinase (30-135) U/L Total Protein (6.3-8.2) g/dL Albumin (3.5-5.0) g/dL Stool Occult Blood (Negative) Thrombosis Risk Factor Assmnt - Choose All That Apply Any of the Below Risk Factors Present?: No Other Risk Factors: Yes Each Risk Factor Represents 2 Points: Age 61-74 years Thrombosis Risk Factor Assessment Total Risk Factor Score: 2 Thrombosis Risk Factor Assessment Level: Low Risk Assessment and Plan Assessment: Assessment 1. New mass right upper limb with mediastinal superior vena cava. And vertebral involvement possibly lung cancer with metastases. 2. Moderate hemoptysis with acute blood loss anemia 3. Superior vena cava syndrome 4. History and nicotine dependence Plan The patient has been evaluated by Dr. mari. The have discussed the the patient at length with [facility]. The patient be transferred to [facility] pulmonary critical care for further evaluation and treatment. See orders and current medication for current med list. Prognosis guarded. Discussed with the patient at length. Recommended to follow-up with the Dr. Bridges after discharge from [facility].
[2017-12-18] MEDS: SODIUM CHLORIDE 0.9% 1,000 ML IV SCH (13:23)
[2017-12-18 18:01] LABS: Iron Saturation 14.42 (12.00-45.00)
[2017-12-19] MEDS ORDERED: VANCOMYCIN TROUGH DUE 1 EACH MISC MISCELLANE ONE (05:00)
== END 2017-12-18 14:33 | disposition short-term general hospital (02) | DRG 181 ==
LOC: EC 16:58 → 6SEL 22:01
PROVIDERS: ADMIT Hospitalist; ATTEND Hospitalist
DX: C34.11 Malignant neoplasm of upper lobe, right bronchus or lung (principal); D62 Acute posthemorrhagic anemia; J90 Pleural effusion, not elsewhere classified; I87.1 Compression of vein; C79.51 Secondary malignant neoplasm of bone; F17.200 Nicotine dependence, unspecified, uncomplicated; G89.29 Other chronic pain; J44.9 Chronic obstructive pulmonary disease, unspecified; Z88.0 Allergy status to penicillin; Z79.1 Long term (current) use of non-steroidal anti-inflammatories (NSAID)
CPT/HCPCS: 36415; 71045; 71260; 74177; 80048; 80053; 82272; 82550; 82553; 82728; 83540; 83550; 83605; 83615; 83690; 83735; 84484; 85025; 85045; 85730; 86850; 86900; 86901; 87040; 93005; 96361; 96365; 96375; 96376; 99291